=== PATIENT | female | born 1980 | race Caucasian/White ===

== ENCOUNTER 2017-07-03 22:00 | Outpatient (CLI) | payer SELFPAY ==
[~2017-07-03] VITALS: Ht 158.8 cm; Wt 79.8 kg
[~2017-07-03 22:00] MED LIST: IBUP-1542 PO; TRAM50TA2 PO
[2017-07-03 22:51] VITALS: Ht 158.8 cm; Wt 79.8 kg
[2017-07-03 22:55] VITALS: BP 106/63; PULSE 74; RESP 18
[2017-07-03] MEDS ORDERED: HYDROCODONE/APAP (5/325) TAB PO ONE (23:00)
[2017-07-03 23:02] LABS: ADD UMIC YES; UR ASCORBIC ACID NEGATIVE (NEGATIVE); UR BACTERIA FEW /HPF (NONE SEEN); UR BILIRUBIN (Dip) NEGATIVE (NEGATIVE); UR BLOOD (Dip) NEGATIVE (NEGATIVE); UR CLARITY CLOUDY (CLEAR); UR COLOR YELLOW (YELLOW); UR GLUCOSE (Dip) NEGATIVE (NEGATIVE); UR KETONES (Dip) NEGATIVE (NEGATIVE); UR LEUKOCYTE ESTERASE (Dip) 2+ Leu/ul (NEGATIVE); UR MUCUS FEW /HPF (NONE SEEN); UR NITRITE (Dip) POSITIVE (NEGATIVE); UR RBC 2 /HPF (0-5); UR SPECIFIC GRAVITY (Dip) 1.018 (1.003-1.030); UR SQUAMOUS EPITHELIAL CELL MANY /HPF (FEW); UR TOTAL PROTEIN (Dip) 1+ mg/dl (NEGATIVE); UR UROBILINOGEN (Dip) NEGATIVE (NEGATIVE)
--- NOTE | 2017-07-03 23:08 | RADRPT ---
PROCEDURE: US biophysical profile. CLINICAL INDICATION: Decreased motion. TECHNIQUE: Multiple sonographic images of the uterus were obtained. The images were revi ewed on a PACS workstation. COMPARISON: No prior studies are available for comparison. FINDINGS: There is a single live intrauterine gestation. heart rate is 148 beats per minute. The position is cephalic. The placenta is anterior grade II with no abruption or previa. The JARED is 15.5 cm. (Normal = 5-20 cm.) Breathing Movement: 2 Gross Body Movement: 2 Tone: 2 Qualitative Amniotic Fluid Volume: 2 TOTAL: 8 IMPRESSION: 1. The biophysical score is 8/8. RPTAT: QQ .Cy Madrigal MD, MD Date Time Electronically viewed and signed by .Cy Madrigal MD, on 07/03/2017 23:08 .R/
[2017-07-04] MEDS ORDERED: PNV11TAB PO (00:48)
[2017-07-04] MEDS ORDERED: FOLI0.8C PO (00:48)
--- NOTE | 2017-07-04 02:02 | PN ---
Triage Information Date/Time Jul 04, 2017 Reason for visit: S/P fall Weeks of Gestation 36w /Para 3/2 Diabetes: none Hypertention: none Additional information Pt fell a WEEK ago while mopping the floor and she sliiped on it and hit her left side. She did not fall on her belly at all. She came in because it still hurts a week later. She did not know she could take Tylenol. no bleeding or leaking. PMHx: none PSHx: none. NKDA. Objective Vital Signs Date Time Temp Pulse Resp B/P Pulse Ox O2 Delivery O2 Flow Rate FiO2 07/03/17 22:55 97.5 74 18 106/63 Room Air Heart Rate: 130's Heart Rate Comments Accels to 160 bpm. No decels. Contractions: None Exam Deferred. Results/Medications Results 24 hrs Laboratory Tests Test 07/03/17 22:15 Urine Color YELLOW Urine Clarity CLOUDY A Urine pH 6.0 Urine Specific [place] 1.018 Urine Ketones NEGATIVE Urine Nitrite POSITIVE A Urine Bilirubin NEGATIVE Urine Urobilinogen NEGATIVE Urine Leukocyte Esterase 2+ H Urine Microscopic RBC 2 Urine Microscopic WBC 18 H Urine Squamous Epithelial Cells MANY A Urine Bacteria FEW A Urine Mucus FEW A Urine Hemoglobin NEGATIVE Urine Glucose NEGATIVE Urine Total Protein 1+ H Imaging Results BPP 8/8. JARED 15.5. Placenta is anterior with no evidence of abruption. Disposition: Discharge Assessment/Plan A: IUP at 36 weeks. S/P fall. P: Pt was given one Viking, reassured that all was fine with her baby, and told that it will take more than a few weeks to feel better as she hit her ribs. DERICK GHOSH MD Jul 04, 2017 02:02
--- NOTE | 2017-07-04 07:12 | TRIAGE ---
OB Triage Datetime Report Generated by CPN: 07/04/2017 07:12 Datetime: 07/04/2017 00:45 Pain Assessment Pain Scale: 4 Pain Presence: Constant Pain Type: Stabbing; Ache Pain Location: Left Chest Pain Goal: 3 Pain Assessment Comments: L side ribs Datetime: 07/03/2017 22:27 Stage of : OB Triage Assessment Type: Triage Maternal Assessment Level of Consciousness: Fully Conscious DTR's/Clonus: DTRs 2+; No Clonus Headache: Denies Blurred Vision: No Respiratory Effort: Unlabored; Regular Rhythm; Equal Expansion Breath Sounds, Left: Clear and Equal Breath Sounds, Right: Clear and Equal Nausea/Vomiting: Denies RUQ Epigastric Pain: Denies Lower Extremities Edema: None Degree: None Upper Extremities Edema: None Degree: None Facial Edema: None Fall Risk Assessment History of Falling: (0) No Secondary Diagnosis: (0) No Ambulatory Aid: (0) Bedrest/Nurse Assist IV Therapy: (0) No Gait: (0) Normal/Bedrest/Immobile Mental Status: (0) Oriented to Own Ability Fall Score: 0 Fall Risk Score Definition: No Risk: No action required Pain Assessment Pain Scale: 8 Pain Presence: Constant Pain Type: Stabbing; Ache Pain Location: Left Chest (Annotations: L-side of ribs.) Pain Goal: 3 Pain Relief Measures: Comfort Measures Datetime: 07/03/2017 22:25 Labor Evaluation Monitor Mode: External Contraction Comments: Applied Heart Rate Monitor Mode: External US Comments: Applied Datetime: 07/03/2017 22:18 Time of Arrival: 07/03/2017 21:53 EGA: 35.6 Arrived By: Wheelchair Arrived From: Home Chief Complaint: L-side pain, fell 1 week ago. Movement: Present Contractions: Denies/Absent Rupture of Membranes: Denies Vaginal Bleeding: None Vaginal Discharge: Denies Recent Sexual Intercouse: Denies Abdominal Trauma: Not Applicable Patient Complaints: Other Time Provider Notified: 07/03/2017 22:37 Provider Notified: Dr Acuña Initial Plan: EFM X2, BPP, pain med
== END 2017-07-04 01:34 | disposition home or self-care (01) ==
LOC: OBT 22:00 → L-D 22:00 → OBT 07-04 01:34
PROVIDERS: ATTEND Obstetrics & Gynecology
DX: O9A.213 Injury, poisoning and certain other consequences of external causes complicating pregnancy, third trimester (principal); Z3A.36 36 weeks gestation of pregnancy; W01.0XXA Fall on same level from slipping, tripping and stumbling without subsequent striking against object, initial encounter; Y93.E5 Activity, floor mopping and cleaning
CPT/HCPCS: 76818; 81001; G0463

== ENCOUNTER 2017-09-08 17:38 | Emergency (ER) | payer MEDICAID ==
[~2017-09-08] VITALS: Wt 73.2 kg
[~2017-09-08 17:38] MED LIST changes: +FOLI0.8C PO; -IBUP-1542 PO; +PNV11TAB PO; -TRAM50TA2 PO
--- NOTE | 2017-09-08 17:57 | ERD ---
ER Documentation Chief Complaint Chief Complaint per pt c sect wound opened a little HPI 37-year-old 27 day female presenting to the ER complaining of bleeding from her site. She has an appointment scheduled on September 29 with her surgeon. She denies any purulent discharge, fever, chills. She complains of mild burning pain at the site of the bleeding as well as some itching. ROS All systems reviewed and are negative except as per history of present illness. Medications Home Meds Reported Medications Folic Acid (Folic Acid) 0.8 Mg Capsule, 0.8 MG PO DAILY, CAP 07/04/17 [id number] ( 19) 1 Each Tablet, 1 TAB PO DAILY, TAB 07/04/17 Allergies Allergies: Coded Allergies: No Known Drug Allergies (Verified Allergy, Unknown, 07/03/17) PMhx/Soc Medical and Surgical Hx: pt denies Medical Hx History of Surgery: Yes () FmHx Family History: No diabetes Physical Exam Vitals Vital Signs Date Time Temp Pulse Resp B/P Pulse Ox O2 Delivery O2 Flow Rate FiO2 09/08/17 17:40 98.0 85 20 123/84 100 Physical Exam Const: Well-appearing, no apparent distress, nontoxic HEENT: Atraumatic, normocephalic. Healing lesion to the right nose. Normal oropharynx Resp: Clear to auscultation bilaterally Cardio: Regular rate and rhythm, no murmurs Abd: Soft, non tender, non distended. Lower transverse abdominal surgical scar with no evidence of erythema or induration. There are 2 sites of wound dehiscence on bilateral aspects of the wound. They are both about 1 cm. No active bleeding or purulent discharge. Normal bowel sounds Skin: No petechiae or rashes Back: No midline or flank tenderness Ext: No cyanosis, or edema Neur: Awake and alert Psych: Normal Mood and Affect Procedures/MDM Patient's exam is consistent with small areas of wound dehiscence. I placed Steri-Strips on these areas. There is no evidence of infection at this time. I recommended she call her OB's office to make a sooner follow-up appointment. Return precautions were discussed. Wound care was discussed. Departure Diagnosis: Primary Impression: Encounter for wound re-check Additional Impression: Wound dehiscence, Condition: Stable EKMEKNORA ULLOA MD Sep 08, 2017 17:57
== END 2017-09-08 18:27 | disposition home or self-care (01) ==
LOC: E/R 17:38
DX: Z48.01 Encounter for change or removal of surgical wound dressing (principal); O90.0 Disruption of cesarean delivery wound
CPT/HCPCS: 99281